=== PATIENT | male | born 1945 | race Caucasian/White ===

== ENCOUNTER 2018-07-05 02:33 | Emergency (ER) | payer MEDICARE, MEDICAID, OTHER ==
[~2018-07-05] VITALS: Ht 182.9 cm; Wt 87.2 kg
[~2018-07-05 02:33] MED LIST: CYCL-1 PO; ORPH100T2 PO
[2018-07-05 02:37] VITALS: BP 135/79
== END 2018-07-05 03:52 | disposition home or self-care (01) ==
LOC: ER 02:33
DX: G47.00 Insomnia, unspecified (principal); E78.00 Pure hypercholesterolemia, unspecified; E03.9 Hypothyroidism, unspecified; G89.29 Other chronic pain; Z79.899 Other long term (current) drug therapy
CPT/HCPCS: 99281

== ENCOUNTER 2018-10-18 17:58 | Emergency (ER) | payer MEDICARE, MEDICAID, OTHER ==
[~2018-10-18] VITALS: Ht 182.9 cm; Wt 98.0 kg
[2018-10-18 18:05] VITALS: BP 180/81
[2018-10-18] MEDS ORDERED: diphenhydrAMINE 25mg capsule PO ONE (20:10)
== END 2018-10-18 20:26 | disposition home or self-care (01) ==
LOC: ER 17:58
DX: G47.00 Insomnia, unspecified (principal); E78.00 Pure hypercholesterolemia, unspecified; E03.9 Hypothyroidism, unspecified; G89.29 Other chronic pain; Z79.899 Other long term (current) drug therapy
CPT/HCPCS: 99283; Q0163

== ENCOUNTER 2022-10-09 22:15 | Emergency (ER) | payer OTHER, MEDICARE, MEDICAID ==
[~2022-10-09] VITALS: Ht 182.9 cm; Wt 94.5 kg
[2022-10-09 22:52] LABS: BASOPHILS # (AUTO) 0.1 X10'3 (0-0.2); BASOPHILS % (AUTO) 0.8 % (0-1); EOSINOPHILS # (AUTO) 0.4 X10'3 (0-0.9); EOSINOPHILS % (AUTO) 3.7 % (0-6); HEMATOCRIT 43.6 % (42.0-52.0); HEMOGLOBIN 14.5 g/dl (14.0-17.9); LYMPHOCYTES # (AUTO) 1.7 X10'3 (1.1-4.8); LYMPHOCYTES % (AUTO) 18.2 % (21-51); MEAN CORPUSCULAR HEMOGLOBIN 30.8 PG (27.0-31.0); MEAN CORPUSCULAR HGB CONC 33.4 g/dL (33.0-36.5); MEAN CORPUSCULAR VOLUME 92.2 FL (78-98); MEAN PLATELET VOLUME 8.8 FL (7.4-10.4); MONOCYTES # (AUTO) 1.3 X10'3 (0-0.9); MONOCYTES % (AUTO) 13.3 % (2-12); PLATELET COUNT 277 X10'3 (140-440); RED BLOOD COUNT 4.73 X10'6 (4.70-6.10); RED CELL DISTRIBUTION WIDTH 14.1 % (11.5-14.5); WHITE BLOOD COUNT 9.4 X10'3 (4.5-11.0)
[2022-10-09 23:16] LABS: ALANINE AMINOTRANSFERASE 101 U/L (12-78); ALBUMIN 3.9 G/DL (3.4-5.0); ALBUMIN/GLOBULIN RATIO 1.1 (1.1-1.5); ALKALINE PHOSPHATASE 89 IU/L (46-116); ANION GAP 11 (8-16); ASPARTATE AMINO TRANSFERASE 57 U/L (10-37); BILIRUBIN,TOTAL 0.5 MG/DL (0.1-1.0); BLOOD UREA NITROGEN 25 MG/DL (7-18); BUN/CREATININE RATIO 19.7 (5.4-32.0); CALCIUM 8.4 MG/DL (8.5-10.1); CHLORIDE 101 MMOL/L (99-107); CREATININE 1.27 MG/DL (0.60-1.10); GLUCOSE 112 MG/DL (70-104); SODIUM 134 MMOL/L (135-145); TOTAL CARBON DIOXIDE 22.4 MMOL/L (24-32); TOTAL PROTEIN 7.6 G/DL (6.4-8.2); eGFR 55 ML/MIN
[2022-10-09 23:22] LABS: POTASSIUM 4.4 MMOL/L (3.5-5.1)
--- NOTE | 2022-10-10 00:12 | NUR ---
Urine collected and sent per RN order.
[2022-10-10 01:03] LABS: CLARITY,URINE CLEAR (Clear); COLOR,URINE YELLOW (Yellow); GLUCOSE, URINE NEGATIVE (Neg); KETONES,URINE NEGATIVE (Neg); LEUKOCYTE ESTERASE ,URINE NEGATIVE (Neg); NITRITES, URINE NEGATIVE (Neg); OCCULT BLOOD,URINE NEGATIVE (Neg); PROTEIN,URINE NEGATIVE (Neg); UROBILINOGEN,URINE 0.2 E.U/dL (0.2-1.0)
--- NOTE | 2022-10-10 01:03 | NUR ---
Ambulatory trial completed in ER. Patient ambulated 60ft in ER with guard assist for safety. Patient initially off balance upon standing, but completed ambulation trial without fall. Patient reports he has had balance issues for many years without known issued.
[2022-10-10 01:05] LABS: UA COLLECTION TYPE CLN CATCH MIDSTREAM
[2022-10-10 03:04] VITALS: BP 146/75
--- NOTE | 2022-10-10 04:21 | NUR ---
Patient IV site removed, reviewed/discussed discharge instructions. Patient trev called pending arrival for ride home.
== END 2022-10-10 04:48 | disposition home or self-care (01) ==
LOC: ER 22:16
DX: Z00.00 Encounter for general adult medical examination without abnormal findings (principal); E78.00 Pure hypercholesterolemia, unspecified; E03.9 Hypothyroidism, unspecified; G89.29 Other chronic pain; M54.50 Low back pain, unspecified
CPT/HCPCS: 36415; 71045; 80053; 81003; 83880; 84484; 85025; 93005; 99285